=== PATIENT | female | born 1995 | race Two or more races ===

== ENCOUNTER 2021-10-13 10:17 | Outpatient (CLI) | payer BC, SELFPAY ==
[2021-10-16 19:08] LABS: HPV Reflexed? NOT INDICATED
== END 2021-10-13 23:59 | disposition home or self-care (01) ==
PROVIDERS: Visit Provider Obstetrics & Gynecology
DX: Z12.4 Encounter for screening for malignant neoplasm of cervix (principal)
CPT/HCPCS: 88175; G0145